=== PATIENT | female | born 1990 | race Caucasian/White ===

== ENCOUNTER 2020-03-25 18:16 | Emergency (ER) | payer OTHER ==
[~2020-03-25] VITALS: Ht 152.4 cm; Wt 81.2 kg
[2020-03-25 18:38] VITALS: Ht 152.4 cm; Wt 81.2 kg
[2020-03-25 22:54] VITALS: BP 135/92
== END 2020-03-25 22:54 | disposition home or self-care (01) ==
LOC: ED 18:16
DX: F15.10 Other stimulant abuse, uncomplicated (principal); R07.89 Other chest pain

== ENCOUNTER 2020-03-26 20:13 | Emergency (ER) | payer OTHER ==
[~2020-03-26] VITALS: Ht 152.4 cm; Wt 80.7 kg
[2020-03-26 20:48] VITALS: Ht 152.4 cm; Wt 80.7 kg
[2020-03-26 22:08] VITALS: BP 122/86
== END 2020-03-26 22:08 | disposition home or self-care (01) ==
LOC: ED 20:13
DX: R07.89 Other chest pain (principal); I10 Essential (primary) hypertension; Z02.79 Encounter for issue of other medical certificate